=== PATIENT | female | born 1970 | race Caucasian/White ===

== ENCOUNTER 2020-05-08 09:24 | Outpatient (REF) | payer OTHER, SELFPAY ==
[2020-05-08 10:58] LABS: MANUAL DIFF FLAG NO
[2020-05-08 11:09] LABS: Basophils Percent Auto 0.6 % (0-2); Eosinophils Absolute Auto 0.1 X10*3/uL (0.0-0.4); Eosinophils Percent Auto 1.6 % (0-4); Hematocrit 40.3 % (37-47); Hemoglobin 12.6 g/dl (12.0-16.0); Imm Gran Abs Auto 0.02 X10*3/uL (0.00-0.03); Imm Gran Pct Auto 0.4 % (0.0-0.4); Lymphocytes Percent Auto 19.3 % (20-40); Mean Corpuscular HGB Conc 31.3 g/dl (31.0-35.0); Mean Corpuscular Hemoglobin 28.4 pg (27.0-33.0); Mean Platelet Volume 10.2 fL (9.4-12.3); Monocytes Absolute Auto 0.3 X10*3/uL (0.1-1.2); Monocytes Percent Auto 5.5 % (2-11); Neutrophils Absolute Auto 3.7 X10*3/uL (2.0-8.3); Neutrophils Percent Auto 72.6 % (45-73); Platelet Count 224 X10*3/uL (160-400); Red Blood Count 4.43 X10*6/uL (4.20-5.50); Red Cell Distribution Width 11.6 % (11.0-16.0); White Blood Count 5.1 X10*3/uL (4.8-10.8)
[2020-05-08 11:41] LABS: Alanine Aminotransferase 20 U/L (0-31); Albumin Level 4.4 g/dL (3.5-5.0); Alkaline Phosphatase 34 U/L (39-117); Anion Gap 11 (12-20); Aspartate Amino Transferase 22 U/L (5-31); Bilirubin Total 0.4 mg/dL (0.0-1.0); Blood Urea Nitrogen 12 mg/dL (9-16); Calcium 8.7 mg/dL (8.4-10.2); Carbon Dioxide 29 mmol/L (22-29); Chloride 104 mmol/L (96-108); Cholesterol 204 mg/dL; Estimated Glomerular Filt Rate > 60; Glucose Random 85 mg/dL (60-115); HDL Cholesterol 73 mg/dL; LDL Cholesterol Calculated 114 mg/dl; Potassium 4.5 mmol/L (3.3-5.1); Sodium 139 mmol/L (135-145); Total Protein 7.2 g/dL (6.5-8.0); Triglycerides 85 mg/dL
[2020-05-08 11:44] LABS: Thyroid Stimulating Hormone 2.21 uIU/mL (0.32-4.0)
[2020-05-14 04:56] LABS: FT4 by Equilib. Dialysis 1.5 ng/dL (0.9-2.2)
== END 2020-05-08 09:25 | disposition home or self-care (01) ==
LOC: HO.LAB 09:24
PROVIDERS: PCP Internal Medicine; Visit Provider Physician Assistant
DX: Z00.00 Encounter for general adult medical examination without abnormal findings (principal); Z13.6 Encounter for screening for cardiovascular disorders
CPT/HCPCS: 36415; 80053; 80061; 84439; 84443; 85025

== ENCOUNTER 2020-09-08 09:36 | Outpatient (REF) | payer OTHER, SELFPAY ==
[2020-09-08 10:15] LABS: MANUAL DIFF FLAG NO
[2020-09-08 10:24] LABS: Basophils Percent Auto 0.5 % (0-2); Eosinophils Absolute Auto 0.1 X10*3/uL (0.0-0.4); Eosinophils Percent Auto 1.7 % (0-4); Hematocrit 38.9 % (37-47); Hemoglobin 12.4 g/dl (12.0-16.0); Imm Gran Abs Auto 0.01 X10*3/uL (0.00-0.03); Imm Gran Pct Auto 0.2 % (0.0-0.4); Lymphocytes Absolute Auto 1.1 X10*3/uL (1.2-4.9); Lymphocytes Percent Auto 26.4 % (20-40); Mean Corpuscular HGB Conc 31.9 g/dl (31.0-35.0); Mean Corpuscular Hemoglobin 28.4 pg (27.0-33.0); Mean Platelet Volume 9.7 fL (9.4-12.3); Monocytes Absolute Auto 0.3 X10*3/uL (0.1-1.2); Monocytes Percent Auto 7.5 % (2-11); Neutrophils Absolute Auto 2.7 X10*3/uL (2.0-8.3); Neutrophils Percent Auto 63.7 % (45-73); Platelet Count 196 X10*3/uL (160-400); Red Blood Count 4.37 X10*6/uL (4.20-5.50); White Blood Count 4.2 X10*3/uL (4.8-10.8)
[2020-09-08 11:17] LABS: Free T4 (Free Thyroxine) 1.02 ng/dL (0.71-1.85); Thyroid Stimulating Hormone 1.37 uIU/mL (0.32-4.0)
[2020-09-08 11:26] LABS: Alanine Aminotransferase 12 U/L (0-31); Albumin Level 4.2 g/dL (3.5-5.0); Alkaline Phosphatase 36 U/L (39-117); Anion Gap 14 (12-20); Aspartate Amino Transferase 18 U/L (5-31); Bilirubin Total 0.6 mg/dL (0.0-1.0); Blood Urea Nitrogen 11 mg/dL (9-16); Calcium 9.6 mg/dL (8.4-10.2); Carbon Dioxide 27 mmol/L (22-29); Chloride 106 mmol/L (96-108); Estimated Glomerular Filt Rate > 60; Glucose Random 54 mg/dL (60-115); Potassium 4.6 mmol/L (3.3-5.1); Sodium 142 mmol/L (135-145); Total Protein 7.1 g/dL (6.5-8.0)
== END 2020-09-08 09:37 | disposition home or self-care (01) ==
LOC: HO.LAB 09:36
PROVIDERS: PCP Internal Medicine; Visit Provider Physician Assistant
DX: E03.9 Hypothyroidism, unspecified (principal)
CPT/HCPCS: 36415; 80053; 84439; 84443; 85025

== ENCOUNTER 2021-06-25 11:00 | Outpatient (REF) | payer OTHER, SELFPAY ==
--- NOTE | ~2021-06-25 | FL_ITS ---
EXAMINATION: FL BARIUM SWALLOW CLINICAL INFORMATION: Dysphagia. COMPARISON: None TECHNIQUE: Barium swallow examination is performed using fluoroscopic evaluation in addition to multiple fluoroscopic spot views. The patient is imaged both upright and prone and using both thick and thin sulfate along with effervescent granules. Fluoroscopy time: 0.8 minutes DAP: 1.003 Gycm2 Images: 33 FINDINGS: Following oral administration of thick barium and barium coated turkey there is normal propagation bolus from the oral cavity through the pharynx, esophagus into stomach without any evidence of obstruction, narrowing or stricture. The prevertebral soft tissues are normal. FL/FL barium swallow IMPRESSION: Unremarkable barium swallow exam.
== END 2021-06-25 11:01 | disposition home or self-care (01) ==
LOC: HO.XRAY 11:00
PROVIDERS: PCP Internal Medicine; Visit Provider Otolaryngology
DX: Z13.89 Encounter for screening for other disorder (principal)
CPT/HCPCS: 74220

== ENCOUNTER 2021-07-07 11:15 | Outpatient (REF) | payer OTHER, SELFPAY ==
[2021-07-07 14:00] LABS: Appearance Urine CLEAR; Color Urine YELLOW; Glucose Urine UA NEG (NEG); Leukocyte Esterase Urine TRACE (NEG); Nitrite Urine NEG (NEG); PH 6.5 (5.0-8.0); Specific Gravity - Urine <= 1.005 (1.005-1.025); Urine Blood NEG (NEG); Urine Ketones NEG (NEG); Urine Protein NEG (NEG-TRACE)
[2021-07-07 14:51] LABS: RBC Urine 0 /HPF (0); Squamous Epithelial Cell Urine TRACE /LPF; WBC Urine 0-2 /HPF (0-4)
== END 2021-07-07 11:16 | disposition home or self-care (01) ==
LOC: HO.MANLDS 11:15
PROVIDERS: Visit Provider Physician Assistant
DX: R30.0 Dysuria (principal)
CPT/HCPCS: 81001; 81003

== ENCOUNTER 2021-12-19 09:12 | Outpatient (REF) | payer OTHER, SELFPAY ==
[2021-12-19 09:26] LABS: MANUAL DIFF FLAG NO
[2021-12-19 10:03] LABS: Basophils Percent Auto 0.6 % (0-2); Eosinophils Percent Auto 1.1 % (0-4); Hematocrit 39.4 % (37.0-47.0); Hemoglobin 12.2 g/dl (12.0-16.0); Imm Gran Abs Auto 0.01 X10*3/uL (0.00-0.03); Imm Gran Pct Auto 0.3 % (0.0-0.4); Lymphocytes Absolute Auto 1.1 X10*3/uL (1.2-4.9); Lymphocytes Percent Auto 28.9 % (20-40); Mean Corpuscular Hemoglobin 27.4 pg (27.0-33.0); Mean Corpuscular Volume 88.5 fL (80.0-98.0); Mean Platelet Volume 9.4 fL (9.4-12.3); Monocytes Absolute Auto 0.3 X10*3/uL (0.1-1.2); Neutrophils Absolute Auto 2.2 x10*3/uL (2.0-8.3); Neutrophils Percent Auto 61.1 % (45-73); Platelet Count 178 X10*3/uL (160-400); Red Blood Count 4.45 X10*6/uL (4.20-5.50); Red Cell Distribution Width 11.9 % (11.0-16.0); White Blood Count 3.6 X10*3/uL (4.8-10.8)
[2021-12-19 10:50] LABS: Alanine Aminotransferase 19 U/L (0-31); Albumin Level 4.3 g/dL (3.5-5.0); Alkaline Phosphatase 34 U/L (39-117); Anion Gap 14 (12-20); Aspartate Amino Transferase 19 U/L (5-31); Bilirubin Total 0.7 mg/dL (0.0-1.0); Blood Urea Nitrogen 17 mg/dL (9-16); Calcium 8.9 mg/dL (8.4-10.2); Carbon Dioxide 26 mmol/L (22-29); Chloride 104 mmol/L (96-108); Cholesterol 204 mg/dL; Estimated Glomerular Filt Rate > 60; Glucose Random 85 mg/dL (60-115); HDL Cholesterol 71 mg/dL; LDL Cholesterol Calculated 122 mg/dl; Potassium 4.4 mmol/L (3.3-5.1); Sodium 140 mmol/L (135-145); Total Protein 7.2 g/dL (6.5-8.0); Triglycerides 59 mg/dL
[2021-12-19 10:57] LABS: Free T4 (Free Thyroxine) 1.04 ng/dL (0.71-1.85); Thyroid Stimulating Hormone 1.05 uIU/mL (0.32-4.0)
== END 2021-12-19 09:13 | disposition home or self-care (01) ==
LOC: HO.LAB 09:12
PROVIDERS: PCP Internal Medicine; Visit Provider Physician Assistant
DX: Z00.00 Encounter for general adult medical examination without abnormal findings (principal)
CPT/HCPCS: 36415; 80053; 80061; 84439; 84443; 85025

== ENCOUNTER 2022-04-02 10:29 | Day surgery (SDC) | payer OTHER, SELFPAY ==
--- NOTE | 2022-04-02 11:19 | P.CONAN_ITS ---
HPI - Anesthesia Eval Consult details Narrative: egd, colonoscopy [facility] Past Medical History Medical History (Updated 04/01/22 @ 12:58 by Montserrat Smith, RN) Globus syndrome Hypothyroidism Family History Family history of problems with anesthesia: No Surgical History Surgical History (Updated 04/01/22 @ 12:58 by Montserrat Smith, RN) H/O eye surgery History of Problems with Anesthesia: No Social History Social History Advance Directives: No Advance Directives Information Provided: Yes Meds Allergies Allergy/AdvReac Type Severity Reaction Status Date / Time bacitracin Allergy Unknown Verified 04/01/22 12:57 Active Medications: Current Medications Sodium Biphosphate/Sodium Phosphate (Sodium Phosphate,Payette-Dibasic 133 Ml Enema) 133 ml ND ONCE PRN PRN Reason: Poor Colonoscopy Prep Results Home Medications Medication Instructions Recorded Confirmed Last Taken Type levothyroxine 50 mcg tablet tab PO 04/01/22 Unknown History omeprazole 20 mg capsule,delayed 1 cap PO DAILY 04/01/22 04/01/22 Unknown History release Exam Exam Date and Time: April 02, 2022 1119 Airway Mallampati Class: II TM Dist: >3cm Neck ROM: Full Heart: rrr Lungs: cta Assessment and Plan Final Anesthetic Review Family History of Problems with Anesthesia: No History of Problems with Anesthesia: No NPO: Yes ASA Class: II Final Preanesthetic Review: No Changes in Pt Med Stat, Meds/Allgs Chart Reviewed, Consent Obtained/Reviewed and Anes Risks/Benef Reviewed Patient Risk: Low Procedure Risk: Low Anesthetic Plan Anesthetic Plan: MAC: and Agree w/ Assess. and Plan Disposition: Standard PACU
[2022-04-02 11:33] VITALS: BP 127/55; PULSE 73; RESP 18; TEMP 486.9; TEMP 908.5; O2SAT 99; BMI 21.7
[2022-04-02] MEDS: Lactated Ringers 1,000 ML 50 ML IVCONT (11:51)
--- NOTE | 2022-04-02 11:52 | PC.NURSE ---
pt reports being unable to void, despite hydration of ivf LR @ 50ml/h. Dr. Padgett aware. pt has current menses, no sex in 4 years . risks discussed by anesthesia, ok to proceed.
--- NOTE | 2022-04-02 13:09 | P.BOP_ITS ---
Brief Operative Note Date of Service: 04/02/22 Pre-op diagnosis: Globus, Screening Post-op diagnosis: other (Hiatal hernia, Gastric polyps, Internal hemorrhoids) Procedure: EGD with biopsies, Colonoscopy to the cecum and TI Surgeon: Ori Shoemaker Anesthesia: MAC Was an [employer] used for this Procedure?: No Estimated blood loss (mL): 2.0 Pathology: other (A. Gastric polyps B. Esophagus 20-25cm) Condition: stable Disposition: PACU
[2022-04-02 13:10] VITALS: BP 100/58; PULSE 65; RESP 16; TEMP 36.1; O2SAT 100
[2022-04-02 13:25] VITALS: BP 112/70; PULSE 54; RESP 18; TEMP 36.9; O2SAT 100
--- NOTE | 2022-04-05 08:54 | OP_ITS ---
SURGEON: Ori Shoemaker MD INDICATIONS: The patient presents for evaluation of globus and colorectal cancer screening. Full consent has been obtained from her for this, including risks of bleeding and perforation. PREOPERATIVE DIAGNOSIS: POSTOPERATIVE DIAGNOSIS: PROCEDURE PERFORMED: Esophagogastroduodenoscopy with biopsies and colonoscopy to the cecum and terminal ileum. ESTIMATED BLOOD LOSS: COMPLICATIONS: ANESTHESIA: Monitored anesthesia care. ASSISTANTS: SPECIMENS: PREOPERATIVE DIAGNOSES: Globus and colorectal cancer screening. POSTOPERATIVE DIAGNOSES: Globus and colorectal cancer screening, small hiatal hernia, gastric polyps, rule out eosinophilic esophagitis, internal hemorrhoids. PROCEDURE IN DETAIL: The patient was placed in the left lateral decubitus position. The Olympus video gastroscope was passed in the posterior oropharynx and upper esophagus under direct vision. The scope was passed slowly to the distal esophagus. The gastroesophageal junction appeared normal without any sign of mass or ulceration. There was no evidence of Galvan's mucosa. The scope entered the stomach. There is a small hiatal hernia. The scope was advanced to the pylorus, and the duodenum was cannulated to the descending portion. The duodenum including the bulb appeared normal with mass or ulceration. The scope was withdrawn back in the stomach. The gastric antrum and body appeared normal with good peristalsis. The scope was retroflexed visualizing the proximal stomach carefully, which appeared normal, without any sign of mass or ulceration other than several hyperplastic-appearing gastric polyps. Biopsies were obtained from the gastric polyps. The scope was straightened and withdrawn back into the esophagus. The esophageal mucosa appeared normal. There was no sign of any proximal esophageal rings nor webs. Biopsies were obtained between 20 and 25 cm. The scope was withdrawn from the patient. She was turned around for the colonoscopy. The digital rectal exam revealed no abnormalities. The Olympus video pediatric colonoscope was entered into the rectum and advanced easily to the cecum. Once in the cecum, I did identify a normal-appearing cecal pouch with appendiceal orifice and a normal-appearing ileocecal valve. The terminal ileum was cannulated and appeared normal. The scope was withdrawn back in the colon. The entire cecum and ileocecal valve appeared normal. The scope was slowly withdrawn assessing all mucosal surfaces carefully. Preparation in the colon with somewhat limited due to some residual stool, which was suctioned and irrigated away as best as possible. I did not visualize any sign of polyps, colitis nor angiodysplasia. In the rectum, the scope was retroflexed, visualizing some small internal hemorrhoids but no other pathology. The rectal mucosa appeared normal. The scope was straightened and withdrawn from the patient. She tolerated the procedures well and was returned to the recovery area in stable condition. IMPRESSION: 1. Small hiatal hernia. 2. Gastric polyps. 3. Rule out eosinophilic esophagitis. 4. Internal hemorrhoids. 5. Limited bowel prep. PLAN: The results of the biopsies will be checked. I recommend a followup colonoscopy at age 57 given the somewhat limited exam today due to the prep. In regard to her sense of globus, I did review with her that there is no sign of any pathology and at this point I would simply observe this. I do not think any further workup of that is required. She will otherwise see me on a p.r.n. basis. MD TAYLOR Mcmahon/PABLO / [id number] MTDD
== END 2022-04-02 13:51 | disposition home or self-care (01) ==
PROVIDERS: PCP Internal Medicine; Visit Provider Internal Medicine
PROC: (CPT 45378; principal; 2022-04-02 11:40)
DX: Z12.11 Encounter for screening for malignant neoplasm of colon (principal); K64.8 Other hemorrhoids; F45.8 Other somatoform disorders; K31.7 Polyp of stomach and duodenum; K44.9 Diaphragmatic hernia without obstruction or gangrene; K21.9 Gastro-esophageal reflux disease without esophagitis; E03.9 Hypothyroidism, unspecified; Z79.899 Other long term (current) drug therapy
CPT/HCPCS: 45378; 43239; 88305; 88342

== ENCOUNTER 2023-01-05 09:33 | Outpatient (REF) | payer OTHER, SELFPAY ==
[2023-01-05 09:52] LABS: MANUAL DIFF FLAG NO
[2023-01-05 10:30] LABS: Basophils Percent Auto 0.4 % (0-2); Eosinophils Percent Auto 0.6 % (0-4); Hematocrit 39.7 % (37.0-47.0); Hemoglobin 12.7 g/dl (12.0-16.0); Imm Gran Abs Auto 0.03 X10*3/uL (0.00-0.03); Imm Gran Pct Auto 0.6 % (0.0-0.4); Lymphocytes Absolute Auto 1.1 X10*3/uL (1.2-4.9); Lymphocytes Percent Auto 20.3 % (20-40); Mean Corpuscular Hemoglobin 28.6 pg (27.0-33.0); Mean Corpuscular Volume 89.4 fL (80.0-98.0); Mean Platelet Volume 9.4 fL (9.4-12.3); Monocytes Absolute Auto 0.3 X10*3/uL (0.1-1.2); Monocytes Percent Auto 5.9 % (2-11); Neutrophils Absolute Auto 3.9 x10*3/uL (2.0-8.3); Neutrophils Percent Auto 72.2 % (45-73); Platelet Count 235 X10*3/uL (160-400); Red Blood Count 4.44 X10*6/uL (4.20-5.50); Red Cell Distribution Width 12.4 % (11.0-16.0); White Blood Count 5.4 X10*3/uL (4.8-10.8)
[2023-01-05 10:43] LABS: Estimated Average Glucose 100 mg/dL; Hemoglobin A1c % 5.1 % (<6.0)
[2023-01-05 11:41] LABS: Alanine Aminotransferase 16 U/L (0-31); Albumin Level 4.2 g/dL (3.5-5.0); Alkaline Phosphatase 33 U/L (39-117); Anion Gap 8 (12-20); Aspartate Amino Transferase 15 U/L (5-31); Bilirubin Total 0.7 mg/dL (0.0-1.0); Blood Urea Nitrogen 16 mg/dL (9-16); Calcium 9.2 mg/dL (8.4-10.2); Carbon Dioxide 30 mmol/L (22-29); Chloride 106 mmol/L (96-108); Cholesterol 238 mg/dL (<200); Estimated Glomerular Filt Rate > 60; Glucose Random 86 mg/dL (60-115); HDL Cholesterol 77 mg/dL (>40); LDL Cholesterol Calculated 143 mg/dL (<100); Potassium 3.9 mmol/L (3.3-5.1); Sodium 140 mmol/L (135-145); Total Protein 7.2 g/dL (6.5-8.0); Triglycerides 91 mg/dL (<150)
[2023-01-05 12:03] LABS: TSH reflex Free T4 1.94 uIU/mL (0.32-4.0); Vitamin D 25-OH Total 38.8 ng/mL (>30)
[2023-01-05 12:06] LABS: Vitamin B12 523 pg/mL (200-900)
== END 2023-01-05 09:34 | disposition home or self-care (01) ==
LOC: HO.LAB 09:33
PROVIDERS: PCP Internal Medicine; Visit Provider Physician Assistant
DX: Z00.00 Encounter for general adult medical examination without abnormal findings (principal)
CPT/HCPCS: 36415; 80053; 80061; 82306; 82607; 82746; 83036; 84443; 85025

== ENCOUNTER 2023-01-07 10:14 | Outpatient (REF) | payer OTHER, SELFPAY ==
[2023-01-08 12:04] LABS: Follicle Stimulating Hormone 13.4 mIU/mL; Lutenizing Hormone 9.7 mIU/mL; Prolactin 8.2 ng/mL
[2023-01-12 19:23] LABS: Progesterone <0.1 ng/mL
[2023-01-12 22:19] LABS: Estradiol Ultra Sensitive 197 pg/mL
[2023-01-16 00:44] LABS: Estrogen 217 pg/mL
== END 2023-01-07 10:15 | disposition home or self-care (01) ==
LOC: HO.MANLDS 10:14
PROVIDERS: Visit Provider Physician Assistant
DX: N95.8 Other specified menopausal and perimenopausal disorders (principal)
CPT/HCPCS: 36415; 82670; 82672; 83001; 83002; 84144; 84146

== ENCOUNTER 2023-03-16 19:38 | Outpatient (REF) | payer OTHER, SELFPAY ==
--- NOTE | ~2023-03-16 | MR_ITS ---
EXAMINATION: MR SHOULDER WITHOUT CONTRAST, LEFT CLINICAL INFORMATION: Left shoulder pain and numbness. Limited range of motion. COMPARISON: None available. TECHNIQUE: MRI of the shoulder without contrast was performed on a high-field scanner. FINDINGS: ROTATOR CUFF: Intact. No rotator cuff tendon tear. No muscle atrophy or fatty infiltration. BICEPS: Intact. CORACOACROMIAL ARCH: The undersurface of the acromion is curved with no subacromial spur. The acromioclavicular joint is normal. Trace fluid and edema within the subacromial subdeltoid bursa, consistent with mild bursitis. LABRUM/CAPSULE: Somewhat linear increased T2 signal within the undersurface of the superior labrum, consistent with a nondisplaced undersurface tear. Additional linear fluid signal along the undersurface of the posterior labrum, consistent with a nondisplaced undersurface tear. Intact joint capsule. GLENOHUMERAL JOINT/MARROW: Focal full-thickness articular cartilage defect at the medial aspect of the humeral head measuring up to 1.1 cm in craniocaudal dimension (coronal image 8/18). Mild marrow edema at the posterolateral humeral head which may represent early degenerative cystic change. Small glenohumeral joint effusion. MR/MR shoulder LT wo con IMPRESSION: 1. Nondisplaced undersurface tear of the superior labrum as well as a nondisplaced undersurface tear of the posterior labrum. 2. Focal full-thickness articular cartilage defect at the medial aspect of the humeral head measuring up to 1.1 cm in craniocaudal dimension. Mild marrow edema at the posterolateral humeral head which may represent early degenerative cystic change. Small glenohumeral joint effusion. 3. Mild subacromial subdeltoid bursitis. 4. No rotator cuff tendon tear.
== END 2023-03-16 19:39 | disposition home or self-care (01) ==
LOC: HO.MRI 19:38
PROVIDERS: PCP Internal Medicine; Visit Provider Physician Assistant
DX: M75.112 Incomplete rotator cuff tear or rupture of left shoulder, not specified as traumatic (principal)
CPT/HCPCS: 73221

== ENCOUNTER 2023-11-29 15:35 | Outpatient (REF) | payer OTHER, SELFPAY ==
[2023-11-29 16:05] LABS: Appearance Urine Clear; Color Urine Yellow; Glucose Urine UA Negative (Negative); Leukocyte Esterase Urine Small (1+) (Negative); Nitrite Urine Negative (Negative); Specific Gravity - Urine <= 1.005 (1.005-1.025); UMIC TRIGGER UACC YES; Urine Blood Negative (Negative); Urine Ketones Negative (Negative); Urine Protein Negative (Neg-Trace)
[2023-11-29 16:08] LABS: Bacteria Urine None Seen (None Seen); Hyaline Casts Urine 0-2 /LPF (0-2); RBC Urine 0-2 /HPF (0-2); Squamous Epithelial Cell Urine 0-2 /HPF (0-2); UACC Culture Trigger YES
== END 2023-11-29 15:36 | disposition home or self-care (01) ==
LOC: HO.LAB 15:35
PROVIDERS: PCP Internal Medicine; Visit Provider Physician Assistant
DX: N39.0 Urinary tract infection, site not specified (principal)
CPT/HCPCS: 81001; 81003; 87086

== ENCOUNTER 2024-01-18 09:30 | Outpatient (REF) | payer OTHER, SELFPAY ==
[2024-01-18 09:55] LABS: MANUAL DIFF FLAG NO
[2024-01-18 10:08] LABS: Basophils Percent Auto 0.8 % (0-2); Eosinophils Absolute Auto 0.1 X10*3/uL (0.0-0.4); Eosinophils Percent Auto 1.4 % (0-4); Hemoglobin 12.7 g/dl (12.0-16.0); Imm Gran Abs Auto 0.02 X10*3/uL (0.00-0.03); Imm Gran Pct Auto 0.6 % (0.0-0.4); Lymphocytes Percent Auto 26.8 % (20-40); Mean Corpuscular HGB Conc 32.6 g/dl (31.0-35.0); Mean Corpuscular Hemoglobin 29.2 pg (27.0-33.0); Mean Corpuscular Volume 89.7 fL (80.0-98.0); Mean Platelet Volume 9.1 fL (9.4-12.3); Monocytes Absolute Auto 0.3 X10*3/uL (0.1-1.2); Monocytes Percent Auto 7.9 % (2-11); Neutrophils Absolute Auto 2.2 x10*3/uL (2.0-8.3); Neutrophils Percent Auto 62.5 % (45-73); Platelet Count 187 X10*3/uL (160-400); Red Blood Count 4.35 X10*6/uL (4.20-5.50); Red Cell Distribution Width 11.5 % (11.0-16.0); White Blood Count 3.6 X10*3/uL (4.8-10.8)
[2024-01-18 10:55] LABS: Alanine Aminotransferase 67 U/L (0-31); Albumin Level 4.1 g/dL (3.5-5.0); Alkaline Phosphatase 33 U/L (39-117); Anion Gap 10 (12-20); Aspartate Amino Transferase 40 U/L (5-31); Bilirubin Total 0.7 mg/dL (0.0-1.0); Blood Urea Nitrogen 15 mg/dL (9-16); Calcium 9.5 mg/dL (8.4-10.2); Carbon Dioxide 28 mmol/L (22-29); Chloride 107 mmol/L (96-108); Cholesterol 227 mg/dL (<200); Estimated Glomerular Filt Rate > 60; Glucose Random 84 mg/dL (60-115); HDL Cholesterol 78 mg/dL (>40); LDL Cholesterol Calculated 136 mg/dL (<100); Potassium 4.1 mmol/L (3.3-5.1); Sodium 141 mmol/L (135-145); Total Protein 7.2 g/dL (6.5-8.0); Triglycerides 67 mg/dL (<150)
[2024-01-18 11:15] LABS: Free T4 (Free Thyroxine) 1.32 ng/dL (0.71-1.85); Thyroid Stimulating Hormone 1.74 uIU/mL (0.32-4.0); Vitamin D 25-OH Total 46.1 ng/mL (>30)
--- OUTSIDE RECORDS SUMMARY | 2024-01-18 23:50 | XMS_ITS | Data Portability ---
Author Organization [place] [facility] Address [address] [place] [id number] Care Team Providers Care Applications Support Specialist Name Role Phone DUONG LARA Primary Care Provider [phone] Assessment Encounter Date Assessment Date Assessment LastModified by Organization Details LastModified Time 01/23/2020 01/23/2020 Overview/History : 49yoF pmhx hypothyroidism is seen for a sore throat for 2-3 days. Recent tooth extraction5 days ago with some mild discomfort. No fever, no difficulty swallowing. Patient also reports her son recently saw her ex who had a covid exposure. Exam: VSS heart and lung sounds clear pharynx without redness, swelling or exudates no sig gum swelling or redness no sig cervical lymphadenopathy DDx considered, but not limited to: viral pharyngitis strep pharyngitis PTS-doubt as no soft tissue swelling and uvula midline dental infection-doubt as no sig redness or swelling Work up/Results: strep culture pending covid test pending Plan/Discussion: Patient is hemodynamically stable non toxic appearing seen today for sore throat. Rapid strep is negative. We will follow up on the culturre. No signs of DIRECTOR OF MANUFACTURING or tooth abscess at this time. Patient was also tested for COVID. She will continue to isolate. Patient instructed to do warm water salt gargles. Instructed to again seek medical care if she develops a fever, worsened pain or has difficulty swallowing. she verbalized understanding and was agreeable with overall plan. In order to obtain further information and compare any laboratory results/values, I have accessed . This information was pertinent in my medical decision making today. Time On Scene with Patient: 00:23:28 [email or web address] Not available 01/23/2020 16:34:36 Plan of Treatment Reminders Order Date Submit Date Provider Last Modified By Organization Details Last Modified Time Details Appointments None recorded. Lab streptococc us group A, culture, throat 2019 020 PAULINE [facility], [address], [address], 0 12:18:22 rapid strep group A, throat 2019 020 [email or web address] [facility], [address], [place], [address], 0 15:55:10 Referral None recorded. Procedures None recorded. Surgeries None recorded. Imaging None recorded. Medication Orders None recorded. Patient TargetsNo targets recorded. Patient InstructionsNo instructions recorded. Reason for Referral None Reported. Results Created Date Observation Date Name Description Value Unit Range Abnormal Flag Note LastModifiedBy Organization Detail LastModifiedTime 01/23/20 20 01/25/2020 strep tococ cus group A, cultu re, throa t specimen description THROAT SWAB Not Available [facility] [address], [address], 01/26/2020 12:18:22 01/23/20 20 01/25/2020 strep tococ cus group A, cultu re, throa t special requests NONE Not Available [facility] [address] [place], [address], 01/26/2020 12:18:22 01/23/20 20 01/26/2020 strep tococ cus group A, cultu re, throa t culture NO GROUP A BETA HEMOLY TIC STREPT OCOCCI ISOLAT ED Not Available [facility] [address], [address], 01/26/2020 12:18:22 01/23/20 20 01/26/2020 strep tococ cus group A, cultu re, throa t report status FINAL 2019 Not Available [facility] [address] [place], [address], 01/26/2020 12:18:22 01/23/20 20 01/28/2020 SARS CoV 2 RNA, QL probe , unspe cifie d speci men covid-19 PCR specimen source NASAL Not Available [facility] [address] [place], [address], 01/29/2020 00:23:09 01/23/20 20 01/29/2020 SARS CoV 2 RNA, QL probe , unspe cifie d speci men covid-19 PCR result (neg) normal NEGAT CONSTANCE 2019- novel Coron aviru s (2018 -nCoV ) not detec anabel by real- time RT-PC R. Note: If clini thad suspi cion for COVID -19 is high, codi nue to maint ain preca ution s and consi estrada repea t testi ng. Resul t repor anabel to GAY DP. To preve nt error s in diagn osis, test resul ts shoul d be inter prete d in the isabela xt of clini thad findi ngs and other labor atory data. Rare polym orphi sms exist that could lead to false -nega tive or false -posi tive resul ts. If resul ts obtai josé antonio do not match the clini thad findi ngs, addit ional testi ng shoul d be consi dered . This test has been autho rized by the FDA under an Emerg ency Use Autho rizat ion (EUA) for use by autho rized labor atori es. Testi ng perfo rmed by real time PCR utili ng BONIFACIO 6800 SARS- CoV-2 test. Not Available [facility] [address] [place], [address], 01/29/2020 00:23:09 01/23/20 20 01/23/2020 rapid strep group A, throa t Strep negati ve Not Available [facility] [address], [place], [address], 01/23/2020 15:54:29 01/23/20 20 01/23/2020 rapid strep group A, throa t Control Visual ized / Valid Not Available [facility] [address], [place], [address], 01/23/2020 15:54:29 Result Notes None recorded. Procedures Surgical History Date Name Laterality Status Provider Name and Address Organization Details Recorded Time biopsy of breast completed SHABNAM EVERETT [address] [place], [address], [place] [facility] 01/23/2020 14:36:07 Imaging Results None recorded. Procedure Notes None recorded. Medical Equipment None Reported. Allergies Allergen ID Allergen Name Allergen Category Reaction Reaction Severity Criticality Documentation Date Start Date Code Code System Note Provider Name and Address Organization Details Recorded Time 003002 Bactrim medicatio n Not available Not available Not available 01/23/2020 14362 9 RxNorm SHABNAM EVERETT [address] [place], [address], [place] [facility] 0 15:42:02 Medications Name Sig Start Date Stop Date Status Note LastModified by Organization Details LastModified Time levothyroxi ne 50 mcg tablet 1 TAB DAILY BUT TAKE 2 TABS ON Tuesday AND SATURDAYS . 90 DAY SUPPLY active Not Available Not Available No t Available diclofenac sodium 75 mg tablet,tristan yed release TAKE 1 TABLET BY MOUTH TWICE A DAY 01/22 completed Not Available Not Available Not Available Afluria Qd (36 mos up)(PF)60 mcg (15 mcg x4)/0.5 mL IM syringe [facility] active Not Available Not Available No t Available Vitals Date Recorded Heart rate Body temperature Oxygen saturation Oxygen saturation in Arterial blood by Pulse oximetry Respiratory rate Systolic blood pressure Diastolic blood pressure Provider Name and Address Organization Details Last Updated DateTime 0 68 /min 96.8 [degF] 99 % 99 % 14 /min 118 mm[Hg] 76 mm[Hg] Not Available [facility] 0 14:04:57 Social History Question Answer Notes LastModified by Organizat ion Details LastModified Time Tobacco Smoking Status Never Smoker SHABNAM EVERETT [address] [place], [address], [place] [facility] 01/23/2020 14:35:13 Do You Have An Advance Directive? No [email or web address] Information not available 01/23/2020 What Is Your Code Status? Full Code [email or web address] Information not available 01/23/2020 Within The Past 12 Months, Has It Happened That The Food You Bought Just Didn't Last And You Didn't Have Money To Get More. No [email or web address] Information not available 01/23/2020 Within The Past 12 Months, Have You Worried That Your Food Would Run Out Before You Got Money To Buy More. No [email or web address] Information not available 01/23/2020 Fall Risk: Do You Feel Unsteady When Standing Or Walking? No Information not available 01/23/2020 We Know That How And When People Interact With Friends And Family Can Be Very Different From Person To Person. How Often Do You Have The Opportunity To See Or Talk To People That You Care About And Feel Close To? (Ex: Talking To Friends On The Phone Or Visiting Friends Or Family Or Going To Orthodox Or Club Meetings) 5 Or More Times Per Week [email or web address] Information not available 01/23/2020 Excessive Alcohol Or Drug Use No [email or web address] Information not available 01/23/2020 We Know From Many Of Our Patients That Covering All Of Their Costs Can Be Difficult At Times. This Can Cause Stress And Impact Health. In The Past Year, Have You Been Unable To Get Any Of The Following When It Was Really Needed? No [email or web address] Information not available 01/23/2020 What Is Your Housing Situation Today? I Have Housing [email or web address] Information not available 01/23/2020 Would You Like Help Connecting To Resources? None [email or web address] Information not available 01/23/2020 Sex: Unknown Functional Status None recorded. Mental Status None recorded. Family History Relationship Description Onset Age of this Age Resolved Age Notes LastModified by Organization Details LastModified Time Father Coronary arterioscler osis [email or web address] Not available 2019 14:35:07 Medical History Condition Response Diabetes N Coronary Artery Disease N High Cholesterol N Cancer Y Pulmonary Embolism N Stroke N Hypertension N Asthma N COPD N Depression N Kidney Disease N Gynecological HistoryNo gynecological history recorded. Obstetrics History GPAL:G 0 P 0 0 0 0 Past Encounters Encounter ID Performer Location Encounter Start Date Encounter Closed Date Diagnosis/Indication Diagnosis SNOMED-CT Code Diagnosis ICD10 Code [id number] SHABNAM EVERETT [facility] [address] [place] [address] 01/23/2020 13:22:32 01/23/2020 16:41:20 Viral pharyngitis 5579144 J02.8 Health Concerns Section Related Observation LastModified by Organization Detai ls LastModified Time None Recorded Concern Status LastModified by Organization Details LastModified Time None Recorded Advance Directives Directive N: Payers Encounter Date Sequence Insurance Name Policy Number Policy Noel Covered Member ID Noel Member ID Guarantor Name 01/23/2020 1 [facility] [id number] Elena Deras [id number] Elena Deras OBGyn Episode No OBEpisode recorded.
--- OUTSIDE RECORDS SUMMARY | 2024-01-18 23:50 | XMS_ITS | Data Portability ---
Author Organization [facility] Address [address] [place] [address] Assessment Encounter Date Assessment Date Assessment LastModified by Organization Details LastModified Time 02/04/2023 02/04/2023 Patient agreed and verbally consents to this audio and video Telehealth appt via a secure platform [email or web address] Not available 02/04/2023 14:27:06 04/26/2023 04/26/2023 Patient agreed and verbally consents to this audio and video Telehealth appt via a secure platform [email or web address] Not available 04/26/2023 13:55:50 Plan of Treatment Reminders Order Date Submit Date Provider Last Modified By Organization Details Last Modified Time Details Appointments ANNUAL EXAM 2023 11:45A M SHABNAM CENTENO Not available Not available Not available Lab estradiol , serum 2022 023 [facility], [address] [place] [address], [id number], 01/07/2023 10:02:09 progester one, serum 2022 023 [facility], [address] [place] [address], [address], 01/13/2023 12:14:46 lh + FSH, serum 2022 023 [facility], [address] [place] [address], [address], 01/10/2023 11:27:10 testoster one, total, serum 2022 023 [facility], [address] [place] [address], [id number], 01/07/2023 10:02:09 prolactin , serum 2022 023 [facility], [address] [place] [address], [id number], 01/07/2023 10:02:09 estrogen, total, serum 2022 023 [facility], [address] [place] [address], [id number], 01/07/2023 10:02:09 Referral None recorded. Procedures None recorded. Surgeries None recorded. Imaging XR, knee, 3 view 2022 023 [facility], [address] [place], [address], 04/27/2022 13:42:45 XR, foot, 3 or more view 2022 023 [facility], [address] [place], [address], 04/27/2022 13:33:08 MRI, shoulder, w/o contrast 2023 024 [email or web address] 10 [facility], [address] [place] [address], [place], [address], 03/16/2023 10:14:53 Medication Orders diclofena c sodium 75 mg tablet,de layed release 2022 023 [email or web address] [id number], [address] [place], [address], 01/07/2023 10:01:28 celecoxib 200 mg capsule 2022 023 [email or web address] [id number], [address] [place], [address], 02/04/2023 14:38:02 amoxicill in 875 mg-potass ium clavulana te 125 mg tablet 2023 024 [id number], [address] [place], [address], 04/26/2023 13:56:12 Patient TargetsNo targets recorded. Patient InstructionsNo instructions recorded. Reason for Referral None Reported. Results Created Date Observation Date Name Description Value Unit Range Abnormal Flag Note LastModifiedBy Organization Detail LastModifiedTime 04/28/19 23 04/27/2022 XR, foot, 3 or more view No observ ation record ed. [facility] [address] [place], [address], 04/27/2022 13:34:47 04/28/19 23 04/27/2022 XR, knee, 3 view No observ ation record ed. [facility] [address] [place], [address], 04/28/2022 16:26:32 07/20/19 23 07/19/2022 MAMMO , scree joceline, digit al, bilat eral No observ ation record ed. [facility] [address] [place], [address], 07/19/2022 12:16:56 03/18/19 24 03/16/2023 MRI, shoul estrada, w/o contr ast No observ ation record ed. [facility] (Medical Records) [address] [place], [address], 03/18/2023 11:53:12 Result Notes None recorded. Problems Name Problem SNOMED Code Status Onset Date Resolution Date Notes Provider Name and Address Organization Details Recorded Time Hypothyroi dism 00123870 Active 2017 Not Available [facility] 3 15:44:41 History of malignant neoplasm of skin Active 2017 Not Available [facility] 3 15:44:41 Impacted cerumen 26937089 Active 2021 Not Available [facility] 3 15:44:41 Dysuria 37233227 Active 2021 Not Available [facility] 3 15:44:41 Bilateral carpal tunnel syndrome 8863634322854 9101 Active 2021 Not Available [facility] 3 15:44:41 Gastroesop hageal reflux disease 314706340 Active 2021 Not Available [facility] 3 15:44:41 Pain of left knee joint 2732007251712 07 Active 2022 Not Available [facility] 3 15:44:41 Pain in left foot 9580829080862 07 Active 2022 Not Available [facility] 3 15:44:41 Tear of meniscus of knee 258803989 Active 2022 Not Available [facility] 3 15:44:41 Cough 64302783 Active 2022 Not Available [facility] 3 15:44:41 Perimenopa usal disorder 757982987 Active 2022 SHABNAM CENTENO [address], [place], [address] , [facility] 3 09:59:16 Pain of left shoulder joint 6474939042307 9109 Active 2022 SHABNAM CENTENO [address], [place], [address] , [facility] 3 14:26:09 Rupture of rotator cuff of left shoulder 2352867263852 9102 Active 2023 SHABNAM CENTENO [address], [place], [address] , [facility] 4 11:14:45 Glenoid labrum tear 123165055 Active 2023 SHABNAM CENTENO [address], [place], [address] , [facility] 4 11:59:46 Acute sinusitis 59712631 Active 2023 SHABNAM CENTENO [address], [place], [address] , [facility] 4 13:55:08 Acute urinary tract infection 249916593 Active 2023 SHABNAM CENTENO [address], [place], [address] , [facility] 4 11:01:53 Problem Notes None recorded. Procedures Surgical History Date Name Laterality Status Provider Name and Address Organization Details Recorded Time 3 Colonoscopy completed Emeka Morse DO [address], [place], [address], [facility] 04/11/2022 07:30:03 2 Cerumen Removal completed SHABNAM CENTENO [address],[place], [address], [facility] 03/16/2021 09:11:02 1 Cerumen Removal completed SHABNAM CENTENO [address], [place], [address], [facility] 11/26/2020 11:15:54 1 Cerumen Removal completed SHABNAM CENTENO [address], [place], [address], [facility] 08/26/2020 11:00:07 1 Cerumen Removal completed SHABNAM CENTENO [address], [place], [address], [facility] 06/03/2020 10:05:52 6 Date of Last Pap Smear completed Amy Manuel NP, [place] [address] [facility],[place], [address], [facility] 09/27/2017 15:14:12 Eye Surgery completed Amy Manuel NP, [place] [address] [facility],[place], [address], [facility] 09/27/2017 15:13:01 Cerv cancer screen docd completed Amy Manuel, [employer], [address] [place], [address], [facility] 09/27/2017 15:16:33 Imaging Results Imaging Date Name Status LastModified by Organiz ation Details LastModified Time 04/27/2022 XR, foot, 3 or more view completed [facility] [address] [place], [address], 04/27/2022 13:34:47 04/27/2022 XR, knee, 3 view completed [facility] [address] [place], [address], 04/28/2022 16:26:32 07/19/2022 MAMMO, screening, digital, bilateral completed [facility] [address] [place], [address], 07/19/2022 12:16:56 03/16/2023 MRI, shoulder, w/o contrast completed [facility] (Medical Records) [address] [place], [address], 03/18/2023 11:53:12 Procedure Notes None recorded. Medical Equipment None Reported. Allergies Allergen ID Allergen Name Allergen Category Reaction Reaction Severity Criticality Documentation Date Start Date Code Code System Note Provider Name and Address Organization Details Recorded Time 3828 Bactrim medicatio n Not available Not available Not available 06/12/2019 25480 9 RxNorm SHABNAM CENTENO [address] [place], [address], [facility] 0 15:17:48 4443 bupropion Not available hallucina tions severe Not available 06/03/2020 60017 RxNorm SHABNAM CENTENO [address] [facility] [place], [address], [facility] 1 10:02:20 6794 diclofena c Not available Not available Not available Not available 06/23/2022 3355 RxNorm const ipati on SHABNAM CENTENO 6 [facility] [place], [address], [facility] 3 12:39:27 Medications Name Sig Start Date Stop Date Status Note LastModified by Organization Details LastModified Time celecoxib 200 mg capsule TAKE 1 CAPSULE BY MOUTH TWICE A DAY NEEDED 2023 active Not Available Not Available Not Avai lable amoxicilli n 500 mg capsule TAKE 1 CAPSULE THREE TIMES DAILY UNTIL GONE 05/06 completed Not Available Not Available Not Available bupropion HCl SR 150 mg tablet,12 hr sustained- release TAKE 1 TABLET EVERY DAY BY ORAL ROUTE FOR 30 DAYS. 06/03 completed Not Available Not Available Not Available paroxetine 10 mg tablet TAKE 1 TABLET BY MOUTH EVERY DAY active Not Available Not Available No t Available ibuprofen 800 mg tablet 09/27 completed Not Available Not Available Not Available benzonatat e 200 mg capsule TAKE 1 CAPSULE BY MOUTH THREE TIMES A DAY NEEDED FOR 14 DAYS 01/07 completed Not Available Not Available Not Available metronidaz ole 0.75 % (37.5 mg/5 gram) vaginal gel 09/27 completed Not Available Not Available Not Available prednisone 20 mg tablet 09/27 completed Not Available Not Available Not Available ciprofloxa suha 500 mg tablet 09/27 completed Not Available Not Available Not Available triamcinol one acetonide 0.1 % topical cream 09/27 completed Not Available Not Available Not Available amoxicilli n 875 mg tablet 09/27 completed Not Available Not Available Not Available levothyrox ine 50 mcg tablet TAKE 1 TABLET BY MOUTH EVERY DAY AND TAKE 2 TABLETS ON TUE AND Tuesday active Not Available Not Available Not Avai lable omeprazole 20 mg capsule,de layed release TAKE 1 CAPSULE BY MOUTH EVERY DAY 04/26 completed Not Available Not Available Not Available diclofenac sodium 75 mg tablet,del ayed release TAKE 1 TABLET BY MOUTH TWICE A DAY NEEDED WITH FOOD active Not Available Not Available No t Available fluticason e propionate 50 mcg/actuat ion nasal spray,susp ension SPRAY 1 SPRAY EVERY DAY BY INTRANASA L ROUTE FOR 1 DAY. 07/07 completed Not Available Not Available Not Available amoxicilli n 875 mg-potassi um clavulanat e 125 mg tablet TAKE 1 TABLET BY MOUTH EVERY 12 HOURS FOR 7 DAYS active Not Available Not Available No t Available Bactrim DS 800 mg-160 mg tablet 1 tab po post coital prn 06/11 completed Not Available Not Available Not Available prednisolo ne sodium phosphate 5 mg base/5 mL (6.7 mg/5 mL) oral soln GARGLE AND SWALLOW ONE TEASPOONF UL (5ML) BY MOUTH 2 TIMES DAILY DIRECTED FOR 7 DAYS. 07/07 completed Not Available Not Available Not Available nitrofuran toin monohydrat e/macrocry stals 100 mg capsule TAKE 1 CAPSULE BY MOUTH EVERY 12 HOURS FOR 7 DAYS active Not Available Not Available No t Available chlorhexid ine gluconate 0.12 % mouthwash RINSE WITH 1 CAPFUL BY MOUTH TWICE DAILY 05/06 completed Not Available Not Available Not Available multivitam in active OTC daily Not Available Not Available Not Available Mucus Relief ER 600 mg tablet, extended release Take 1 tablet every 12 hours by oral route for 14 days. 07/07 completed Not Available Not Available Not Available BinaxNOW COVID-19 Ag Self Test kit FOLLOW INSTRUCTI ONS INCLUDED WITH THE PACKAGE. 04/26 completed Not Available Not Available Not Available Paxlovid 300 mg (150 mg x 2)-100 mg tablets in a dose pack TAKE 3 TABLETS BY MOUTH TWICE DAILY DIRECTED ON BOX FOR 5 DAYS active Not Available Not Available No t Available Vitals Date Recorded Body height Body mass index (BMI) Body weight Heart rate Oxygen saturation Oxygen saturation in Arterial blood by Pulse oximetry Systolic blood pressure Diastolic blood pressure Provider Name and Address Organization Details Last Updated DateTime 3 168.91 cm 22.6 kg/m2 38990.1 2 g 67 /min 98 % 98 % 100 mm[Hg] 60 mm[Hg] [facility] 3 10:51:13 Date Recorded Body height Body mass index (BMI) Body weight Heart rate Oxygen saturation Oxygen saturation in Arterial blood by Pulse oximetry Systolic blood pressure Diastolic blood pressure Provider Name and Address Organization Details Last Updated DateTime 3 168.91 cm 22.3 kg/m2 98811.9 3 g 74 /min 99 % 99 % 120 mm[Hg] 68 mm[Hg] Iman Andrez [facility] 3 09:34:47 Date Recorded Body height Body mass index (BMI) Body weight Heart rate Oxygen saturation Oxygen saturation in Arterial blood by Pulse oximetry Systolic blood pressure Diastolic blood pressure Provider Name and Address Organization Details Last Updated DateTime 4 168.91 cm 23.2 kg/m2 66383.4 9 g 81 /min 99 % 99 % 100 mm[Hg] 64 mm[Hg] Iman Maguire [facility] 4 11:01:43 Social History Question Answer Notes LastModified by Organizat ion Details LastModified Time Tobacco Smoking Status Never Smoker Sandy Jazzmine paiz [facility] 09/27/2017 15:08:14 What Was The Date Of Your Most Recent Tobacco Screening? 01/07/2023 Information not available 03/14/2023 Do You Or Have You Ever Used Any Other Forms Of Tobacco Or Nicotine? No [email or web address] Information not available 03/14/2023 Sex: Unknown Functional Status None recorded. Mental Status None recorded. Family History Relationship Description Onset Age of this Age Resolved Age Notes LastModified by Organization Details LastModified Time Father Type 1 diabetes mellitus 48 dialys is sreedhar Not available 09/27/2017 15:12:05 Mother Malignant neoplasm of skin fibroi ds sreedhar Not available 09/27/2017 15:12:31 Medical History Condition Response Coronary Artery Disease N Gout N Kidney Stones N Blood Diseases N Hyperthyroidism N Blood Transfusion N COPD N Depression Y Anxiety Disorder N Muscle, Joint, or Bone Problems N Obesity N Vision or Eye Problems Y Arthritis Infertility Y Mental Disorder N Cancer N Stroke N Varicosities N Fibromyalgia N Headaches N Kidney Disease N Heart Problems N Skin Problems Y Eating Disorder Y Constipation N Asthma N Hepatitis N Pulmonary Embolism N Chronic Ear Infections N Chicken Pox Y Autism Spectrum Disorder (ASD) N Thrombophilias N Breast Cancer N Hypothyroidism Y Lung Disease N Defects or Inherited Disease N Difficulty Swallowing Y Bladder or Kidney Problems N Liver Disease N Allergies/Hayfever N Thyroid Problems Y GI Problems N Anemia Mental Illness N Diabetes N Seizures/Epilepsy N Congestive Heart Failure (CHF) N Eczema N Diverticulitis N Abuse/Domestic Violence N Reflux/GERD N Heart Disease N Hypertension N Gynecological History Statement/Question Response Abnormal Pap Y Flow Heavy Date of LMP 09/22/2017 On BCP's at Conception? N STIs/STDs N HPV Vaccine N Duration of Flow (days) 5 Age at Menarche 14 Current Control Method None Age at First Child 43 Sexually Active? Y Menses Monthly Y Date of Last Pap Smear 02/07/2015 Sexual Problems? Y Obstetrics History GPAL:G 1 P 1 0 0 1 Type Value Full Term 1 Living 1 Total 1 Immunizations Vaccine Type Date Status Note Provider Nam e and Address Organization Details Recorded Time COVID-19, mRNA, LNP-S, PF, 100 mcg/0.5mL dose or 50 mcg/0.25mL dose 1 completed Amairani paiz [facility] 08/19/2020 14:27:21 COVID-19, mRNA, LNP-S, PF, 100 mcg/0.5mL dose or 50 mcg/0.25mL dose 1 completed Amairani paiz [facility] 08/19/2020 14:27:27 COVID-19, mRNA, LNP-S, PF, 100 mcg/0.5mL dose or 50 mcg/0.25mL dose 1 completed Amairani paiz [facility] 08/19/2020 14:27:35 influenza, unspecified formulation 2 completed Arminda paiz [facility] 12/30/2021 09:52:53 COVID-19, mRNA, LNP-S, bivalent, PF, 10 mcg/0.2 mL 1 completed Arminda paiz [facility] 12/30/2021 09:53:24 COVID-19, mRNA, LNP-S, bivalent, PF, 10 mcg/0.2 mL 2 completed Arminda paiz [facility] 12/30/2021 09:53:29 Influenza, split virus, quadrivalent, preservative 8 [facility] 15:32:02 Past Encounters Encounter ID Performer Location Encounter Start Date Encounter Closed Date Diagnosis/Indication Diagnosis SNOMED-CT Code Diagnosis ICD10 Code [id number] Amy Manuel NP, [address],[facility] [place] [address] 09/27/2017 15:01:57 09/27/2017 16:16:04 Adult health examination 542258533 Z00.00 Hypothyroidism 30493829 E03.9 History of malignant neoplasm of skin 485138779 Z85.828 Recurrent cystitis 03894 3008 N30.90 Screening procedure 2012 5006 Z13.9 [id number] SHABNAM CENTENO [address] [place] [address] 06/12/2019 15:12:15 06/12/2019 15:45:05 Low back pain 935424658 M54.5 [id number] SHABNAM CENTENO [address] [place] [address] 05/06/2020 09:52:37 05/06/2020 16:55:54 Active or passive immunization 110594254 Z23 Adult [facility] th examination 845543664 Z00.00 Anxiety 90338056 F41.9 Screening for cardiovascular system disease 021398062 Z13.6 [id number] SHABNAM CENTENO [address] [place] [address] 06/03/2020 09:43:28 06/03/2020 11:54:55 Impacted cerumen of bilateral ears 0198699871 423557 H61.23 Hypothyroidism 54375387 E03.9 [id number] SHABNAM CENTENO [address] [place] [address] 08/26/2020 10:34:13 08/26/2020 11:59:11 Hypothyroidism 16871059 E03.9 Impacted cerumen 8635992 6 H61.23 [id number] SHABNAM CENTENO [address] [place] [address] 11/26/2020 10:28:51 11/26/2020 15:39:12 Posterior rhinorrhea 76056413 R09.82 Impacted c erumen of bilateral ears 9509855353 267560 H61.23 [id number] SHABNAM CENTENO [address],[facility] [place] [address] 03/16/2021 08:58:06 03/16/2021 12:14:43 Impacted campbelln 87046717 H61.23 [id number] SHABNAM CENTENO [address],[facility] [place] [address] 07/07/2021 10:58:01 07/07/2021 11:55:58 Dysuria 77425571 R30.0 [id number] SHABNAM CENTENO [address],[facility] [place] [address] 12/30/2021 10:27:32 12/30/2021 11:53:35 Active or passive immunization 245487689 Z23 Adult heal th examination 864297320 Z00.00 Bilateral carpal tunnel syndrome 1202208234 3186635 G56.03 Gastroesop hageal reflux disease 218350920 K21.9 [id number] SHABNAM CENTENO [address],[facility] [place] [address] 04/26/2022 10:37:52 04/26/2022 12:07:54 Pain of left knee joint 8362186847 98483 M25.562 Pain in left foot 215928 2688 77851 M79.672 [id number] SHABNAM CENTENO [address],[facility] [place] [address] 01/07/2023 09:30:14 01/10/2023 08:17:25 Perimenopausal disorder 546183289 N95.8 Bilateral carpal tunnel syndrome 7850104759 2678705 G56.03 Tear of me niscus of knee 578896175 S83.207A [id number] SHABNAM CENTENO [address] [place] [place] [address] 02/04/2023 11:32:31 02/04/2023 16:12:01 Pain of left shoulder joint 2364194707 3079479 M25.512 [id number] SHABNAM CENTENO [address] [place] [address] 03/14/2023 10:55:57 03/14/2023 15:34:54 Rupture of rotator cuff of left shoulder 6997713093 5422514 M75.112 [id number] SHABNAM CENTENO [facility] [address] [facility] [place] [address] 04/26/2023 11:38:49 04/26/2023 15:27:14 Acute sinusitis 88820478 J01.01 Health Concerns Section Related Observation LastModified by Organization Detai ls LastModified Time None Recorded Concern Status LastModified by Organization Details LastModified Time None Recorded Advance Directives Directive None Recorded Payers Encounter Date Sequence Insurance Name Policy Number Policy Noel Covered Member ID Noel Member ID Guarantor Name 04/26/2022 1 [employer] [id number] Elena Deras [id number] Elena Deras 01/07/2023 1 [employer] [id number] Elena Deras [id number] Elena Deras 02/04/2023 1 [employer] [id number] Elena Deras [id number] Elena Deras 03/14/2023 1 UMR [id number] Elena Deras [id number] Elena Deras 04/26/2023 1 UMR [id number] Elena Deras [id number] Elena Deras Notes Date Note Type Note Provider Name and Address Organization Details Recorded Time 04/26/2022 text/html f/u left knee pa in the patient reports that she is having left knee painfrom IT band to left knee to left calf into the heel of her footthe patient reports that it is aggravated by kneelingconstant aching in the lateral side of her left leg the patient reports that she was seen prior for IT band friction syndromesaw NEOSno recent imaging on those areas SHABNAM CENTENO [address] [place] [address] [place], [address], [facility] 04/26/2022 11:25:01 01/07/2023 text/html medication check the patient is doing well the patient levels look goodwill continue on the red yeast riceHDL is really really good the patient is having night sweats, hair thinning, skin changes, mood changesagreed to check levels of her hormones as well will continue to monitor her cholesterol BP is excellent getting wrist injections and an injection in her left kneedoing okay with them SHABNAM CENTENO [address] [facility], [place], [address], [facility] 01/07/2023 10:05:47 02/04/2023 text/html c/o left shoulde r pain telemed phone callpt consents to phone call the patient is having left shoulder painonly thing that is repetitive is her dog sharp pain with laterally side to sideflexion and extension bother herso does external rotationpain with sleeping at night on right side due to gravity throbbing ache in the shoulderbothers her more toward the end of the day the patient has been using celebrex for her knee will order and give higher doseprobable tendinitis will fu with pt if no improvement with rest and NSA[place], [address], [facility] 02/04/2023 14:39:12 03/14/2023 text/html c/o left shoulde r The patient reports L shoulder pain, has had issues with it, worsened after shoveling this winterThe pain started about two to three weeks agoThe pain is characterized by pain in the anterior shoulder, down the left arm along the bicep tendonpain provoked by movement like flexion or extensionOn a scale of 1 to 10 the patient reports a 7/10 at worse and 4/10 at bestThe patient is R hand dominant Endorses weakness, radiation, reduced ROM, pain, notable strength lose in the L arm compared toThe pain is worsened by flexion and extensionThe pain is alleviated by rest, NSAIDs occasionally The patient reports no trauma or injuryThe patient reports repetitive activities/shoveling ROM compared to unaffected shoulder is weaker with crepitus SHABNAM CENTENO 6 [facility], [place], [address], [facility] 03/14/2023 11:21:05 04/26/2023 text/html c/o sinus infect ion The patient is participating in this appointment via telemedicine communication with a phone call/video calling service (Doxy)The patient consents to use of these platforms in place of an in-person appointment due to either sick symptoms the patient is presenting with or current office closure due to COVID exposure in order to keep our office staff and patients safe The patient presents to the office today with concerns of sick symptoms including sinus pressure, pain, congestion, ear blockage, producing green/yellow mucus no fever, no chillsno sore throat The symptoms started originally n/aThe patient reports exposure to her son, sick and recently in peds officeThe patient symptoms mainly involves the Pertinent comorbidities include n/a The patient symptoms are alleviated by rest, mucinex for a few hoursThe patient symptoms are exacerbated by blowing her nose, bending over The patient has tested for COVID-19 and the results was negative SHABNAM CENTENO [address] [place] [address],[facility], [place], [address], [facility] 04/26/2023 13:58:04 OBGyn Episode No OBEpisode recorded.
--- OUTSIDE RECORDS SUMMARY | 2024-01-18 23:50 | XMS_ITS | Patient Health Record ---
Author Organization [facility] Address [address] [place] [address] Care Team Providers Care Associate Oracle Retail Name Role Phone Emeka Morse Primary Care Provider Ori Villaseñor [phone] ALLERGIES Allergen (clinical drug ingredient) Drug/Non Drug Allergy documented on EMR Reaction Allergy Type Onset Date Status sulfamethoxazole / trimethoprim Bactrim Unknown Drug Allergy Active REASON FOR REFERRAL No Information MEDICATIONS Medication SIG (Take, Route, Frequency, Duration) Notes Start Date End Date Status Multivitamin - as directed Orally Active Red Yeast Rice 600 MG as directed Orally Active Omeprazole 20 MG 1 capsule 30 minutes before morning meal Orally Once a day for 30 day(s) 02/12/2022 Active Levothyroxine Sodium 50 MCG 1 tablet in the morning on an empty stomach Orally Once a day for 30 day(s) 02/12/2022 Active IMMUNIZATIONS Vaccine Route Administration Date Status Comme nts Influenza Unknown 12/30/2021 Administered SOCIAL HISTORY Tobacco Use: Social History Observation Description Date Details (start date - stop date) Never Smoker NA - NA Sex Assigned At : Social History Observation Description Sex Assigned At Unknown Tobacco Use/Smoking Question Answer Notes Patient is a nonsmoker Alcohol Screen Question Answer Notes Did you have a drink contain ing alcohol in the past year? Yes How often did you have a dri nk containing alcohol in the past year? 2 to 3 times a week (3 points) How many drinks did you have on a typical day when you were drinking in the past year? 1 or 2 drinks (0 point) How often did you have 6 or more drinks on one occasion in the past year? 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 629054620 Problem Screen for colon cancer (Z12.11) Active confirmed 661332836 Problem Gastric polyp (K31.7) Active confirmed Gastric polyp (67734044) Problem Globus sensation (F45.8) Active confirmed Globus sensation (008244427) PLAN OF TREATMENT Pending Test Test Name Order Date Pathology 04/02/2022 Future Test Test Name Order Date UPPER GI ENDOSCOPY 02/12/2022 COLONOSCOPY 02/12/2022 Insurance Providers Payer Name Payer Address Payer Phone Subscriber Number Group Number Insured Name Patient Relationship to Insured Coverage Start Date Coverage End Date [place] [address] [address] [place] [address] [id number] WILLIE THOMPSON Self - patient is the insured MEDICAL (GENERAL) HISTORY Medical History History ICD Code Hypothyroidism Denies [place],DM,CVA,Lung disease,renal dise ase Globus Surgical History Surgery Date(Month/Year) Eye surgery with Lasik 2006
== END 2024-01-18 09:31 | disposition home or self-care (01) ==
LOC: HO.LAB 09:30
PROVIDERS: PCP Internal Medicine; Visit Provider Physician Assistant
DX: Z00.00 Encounter for general adult medical examination without abnormal findings (principal)
CPT/HCPCS: 36415; 80053; 80061; 82306; 84439; 84443; 85025

== ENCOUNTER 2024-10-29 09:39 | Outpatient (REF) | payer OTHER, SELFPAY ==
--- OUTSIDE RECORDS SUMMARY | 2024-10-29 11:26 | XMS_ITS | Clinical Summary ---
Author Organization [facility] Address [address] [place] [address] Care Team Providers Care Devulcanizer Loader Name Role Phone Unavailable Primary Care Provider Unavailabl e Social History Tobacco Use Types Packs/Day Years Used Date Smoking Tobacco: Never Assessed Comments Unknown Sex and Gender Information Value Date Recorded Sex Assigned at Not on file Legal Sex Female 7:12 PM EST Gender Identity Not on file Sexual Orientation Not on file Plan of Treatment Health Maintenance Due Date Last Done Comments Breast Cancer Screening 1972 DTaP,Tdap,and Td Vaccines (1 - Tdap) 08/02/1991 Hepatitis B Vaccines (1 of 3 - 19+ 3-dose series) 08/02/1991 Cervical Cancer Screening: P ap Smear 1993 Pneumococcal Vaccine: 50+ Ye ars (1 of 1 - PCV) 2022 Zoster Vaccines (1 of 2) 2022 Depression Screening 02/08/2024 COVID-19 Vaccine (1 - 2023-2 5 season) 2024 Influenza Vaccine (#1) 2024 HIB Vaccines Aged Out No longer eligi ble based on patient's age to complete this topic HPV Vaccines Aged Out No longer eligi ble based on patient's age to complete this topic Hepatitis A Vaccines Aged Out No long er eligible based on patient's age to complete this topic IPV Vaccines Aged Out No longer eligi ble based on patient's age to complete this topic MMR Vaccines Aged Out No longer eligi ble based on patient's age to complete this topic Meningococcal ACWY Vaccine Aged Out N o longer eligible based on patient's age to complete this topic Meningococcal B Vaccine Aged Out No l onger eligible based on patient's age to complete this topic RSV Immunization Patients Un estrada 20 months Aged Out No longer eligible b ased on patient's age to complete this topic Varicella Vaccines Aged Out No longer eligible based on patient's age to complete this topic
--- OUTSIDE RECORDS SUMMARY | 2024-10-29 11:26 | XMS_ITS | Clinical Summary ---
Author Organization [facility] Address [address] [place] [address] Care Team Providers Care Wire Rope Fabrication Supervisor Name Role Phone Unavailable Primary Care Provider Unavailabl e Social History Tobacco Use Types Packs/Day Years Used Date Smoking Tobacco: Never Assessed Sex and Gender Information Value Date Recorded Sex Assigned at Not on file Gender Identity Not on file Sexual Orientation Not on file Plan of Treatment Not on file
--- OUTSIDE RECORDS SUMMARY | 2024-10-29 11:27 | XMS_ITS | Patient Health Record ---
Author Organization [facility] Address [address] [place] [address] Care Team Providers Care Human Factors Scientist Name Role Phone Emeka Morse Primary Care Provider Ori Villaseñor [phone] Allergies Allergen (clinical drug ingredient) Drug/Non Drug Allergy documented on EMR Reaction Allergy Type Onset Date Status sulfamethoxazole / trimethoprim Bactrim Unknown Drug Allergy Active Reason For Referral No Information Medications Medication SIG (Take, Route, Frequency, Duration) Notes [...] a day for 30 day(s) 02/12/2022 Active Immunizations Vaccine Route Administration Date Status Comme nts Influenza Unknown 12/30/2021 Administered Social History Tobacco Use: Social History Observation Description Date Details (start date - stop date) Never Smoker NA - NA Tobacco Use/Smoking Question Answer Notes Patient is [...] Never (0 point) Points 3 Interpretation Positive Section Notes: No sig alcohol, nonsmoker Problems Problem Type SNOMED Code ICD Code Onset Dates Problem Status W/U Status Risk Notes Problem [id number] Screen for colon cancer (Z12.11) Active confirmed Problem Gastric polyp (93394713) Gastric polyp (K31.7) Active confirmed Problem Globus sensation (486720538) Globus sensation (F45.8) Active confirmed Problem 642184800 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 Plan Of Treatment Pending Test Test Name Order Date Pathology 04/02/2022 Future Test Test Name Order Date UPPER GI ENDOSCOPY 02/12/2022 COLONOSCOPY 02/12/2022 Insurance Providers Payer Name Payer Address Payer Phone Subscriber Number Group Number Insured Name Patient Relationship to Insured Coverage Start Date Coverage End Date [employer] [address] [address] [place] [address] [phone] [id number] WILLIE THOMPSON Self - patient is the insured Medical (General) History Medical History History ICD Code Hypothyroidism Denies [place],DM,CVA,Lung disease,renal dise ase Globus Surgical History Surgery Date(Month/Year) Eye surgery with Lasik 2006
[2024-10-29 11:32] LABS: Free T4 (Free Thyroxine) 1.20 ng/dL (0.71-1.85); Thyroid Stimulating Hormone 0.69 uIU/mL (0.32-4.0)
== END 2024-10-29 09:40 | disposition home or self-care (01) ==
LOC: HO.LAB 09:39
PROVIDERS: Visit Provider Physician Assistant
DX: E03.8 Other specified hypothyroidism (principal)
CPT/HCPCS: 36415; 84439; 84443

== ENCOUNTER 2024-12-18 10:59 | Outpatient (REF) | payer OTHER, SELFPAY ==
--- NOTE | ~2024-12-18 | US_ITS ---
EXAMINATION: US THYROID CLINICAL INFORMATION: Hypothyroidism COMPARISON: None available. TECHNIQUE: Linear transducer grayscale and color Doppler examination with attention to the region of the thyroid. FINDINGS: SIZE: Measurements of the thyroid lobes and nodules are given in sagittal, anteroposterior and transverse dimensions respectively. Right Thyroid Lobe: 4.3 x 0.6 x 0.9 cm, volume 1.2 mL. Parenchyma: The gland echotexture is normal. Thyroid vascularity is normal. Left Thyroid Lobe: 3.8 x 1.3 x 1.3 cm, volume 3.5 mL. Parenchyma: The gland echotexture is normal. Thyroid vascularity is normal. Isthmus: 0.2 cm in maximum AP dimension. Estimated total number of nodules greater than or equal to 1 cm: 1. Car Stereo Installer nodules are described as follows: 1. Location: Midportion left lobe. Size: 1.8 x 1.1 x 0.9 cm, volume 0.91 mL. Nodule characteristics: Composition: Mixed cystic and solid (1). Echogenicity: Hypoechoic (2). Shape: Taller than wide (3). Margins: Smooth (0). Echogenic Foci: Macrocalcifications (1). ACR TI-RADS total points: 4 ACR TI-RADS category: 4 2. Location: Lower pole, left lobe. Size: 0.7 x 0.4 x 0.5 cm, volume 0.07 mL. Nodule characteristics: Composition: Solid/almost completely solid (2). Echogenicity: Isoechoic (1). Shape: Not taller than wide (0). Margins: Smooth (0). Echogenic Foci: None (0). ACR TI-RADS total points: 3 ACR TI-RADS category: 3 NODES: No gross lymphadenopathy. US/US thyroid IMPRESSION: ACR TI-RADS Category 4 and 3. ACR TI-RADS RECOMMENDATION REFERENCE: Ultrasound-guided fine-needle aspiration, followup ultrasound, no further follow up. * TR1 (0 point) and TR2 (2 points): No FNA or follow up. * TR3 (3 points): FNA if more than or equal to 2.5 cm in maximum dimension, followup ultrasound in 1, 3 and 5 years if 1.5 to 2.4 cm in maximum dimension. * TR4 (4-6 points): FNA if more than or equal to 1.5 cm in maximum dimension, followup ultrasound in 1, 2, 3 and 5 years if 1 to 1.4 cm in maximum dimension. * TR5 (more than or equal to 7 points): FNA if more than or equal to 1 cm in maximum dimension, followup ultrasound every year for 5 years if 0.5 to 0.9 cm in maximum dimension. * TR3, TR4 or TR5 nodules that are below the size threshold for followup receive no follow up. Electronically signed by: Jr Moctezuma MD 12/18/2024 11:37 AM BLANCA GONZALEZ
--- OUTSIDE RECORDS SUMMARY | 2024-12-18 13:07 | XMS_ITS | Clinical Summary ---
Author Organization [facility] it[facility] Address [address] [place] [address] Care Team Providers Care Vehicle Maintenance Supervisor Name Role Phone Unavailable Primary Care [...] Depression Screening 02/08/2024 COVID-19 Vaccine (1 - 2024-2 6 season) 2024 Influenza Vaccine (#1) 2024 RSV Immunization Adult Patie nts (1 - 1-dose 75+ series) 08/02/2047 HIB Vaccines Aged Out No longer eligi [...]
--- OUTSIDE RECORDS SUMMARY | 2024-12-18 13:08 | XMS_ITS | Patient Health Record ---
Author Organization [facility] Address [address] [place] [address] Care Team Providers Care Sewing Machine Operator Semiautomatic Name Role Phone Emeka Morse Primary Care Provider Ori Villaseñor [phone] Allergies Allergen (clinical drug ingredient) Drug/Non Drug [...] minutes before morning meal Orally Once a day; Duration: 30 day(s) 02/12/2022 Active Levothyroxine Sodium 50 MCG 1 tablet in the morning on an empty stomach Orally Once a day; Duration: 30 day(s) 02/12/2022 Active Immunizations Vaccine Route [...] Problem Status W/U Status Risk Notes Problem Screening for malignant neoplasm of colon (738703903) Screen for colon cancer (Z12.11) Active confirmed Problem Gastric polyp (44613376) Gastric polyp (K31.7) Active confirmed Problem Globus sensation (298504032) Globus sensation (F45.8) Active confirmed Problem Globus pharyngeus (650324504) 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 Plan Of Treatment Pending Test Test Name Order Date Pathology 04/02/2022 Future Test Test Name Order Date UPPER GI ENDOSCOPY 02/12/2022 COLONOSCOPY 02/12/2022 Insurance Providers Payer Name Payer Address Payer Phone Subscriber Number Group Number Insured Name Patient Relationship to Insured Coverage Start Date Coverage End Date [facility] [address] [address] [place] [address] [id number] WILLIE THOMPSON Self - patient is the insured Medical (General) History Medical History History ICD Code Hypothyroidism Denies [place],DM,CVA,Lung disease,renal dise ase Globus Surgical History Surgery Date(Month/Year) Eye surgery with Lasik 2006
== END 2024-12-18 11:00 | disposition home or self-care (01) ==
LOC: HO.US 10:59
PROVIDERS: PCP Internal Medicine; Visit Provider Physician Assistant
DX: E03.8 Other specified hypothyroidism (principal)
CPT/HCPCS: 76536

== ENCOUNTER → 2024-12-18 11:01 | Outpatient (BNV) | payer OTHER, SELFPAY | PROVIDERS: PCP Internal Medicine; Visit Provider Radiology Diagnostic Radiology | DX: E03.9 Hypothyroidism, unspecified (principal) | CPT/HCPCS: 76536 ==

== ENCOUNTER 2025-01-23 09:26 | Outpatient (REF) | payer OTHER, SELFPAY ==
[2025-01-23 10:02] LABS: MANUAL DIFF FLAG NO
--- OUTSIDE RECORDS SUMMARY | 2025-01-23 10:48 | XMS_ITS | Clinical Summary ---
Author Organization [facility] Prior to 07/07/[address] [place] [address] Care Team Providers Care Tray Checker Name Role Phone Unavailable Primary Care Provider Unavailabl e Social History Tobacco Use Types Packs/Day Years Used Date Smoking Tobacco: Never Assessed Sex and Gender Information Value Date Recorded Sex Assigned at Not on file Gender Identity Not on file Sexual Orientation Not on file Plan of Treatment Not on file
--- OUTSIDE RECORDS SUMMARY | 2025-01-23 10:48 | XMS_ITS | Clinical Summary ---
Author Organization [facility] it[facility] Address [address] [place] [address] Care Team Providers Care Electric Blanket Wirer Name Role Phone Unavailable Primary Care Provider [...]
--- OUTSIDE RECORDS SUMMARY | 2025-01-23 10:49 | XMS_ITS | Patient Health Record ---
Author Organization [facility] Address [address] [place] [address] Care Team Providers Care Processing Archivist Name Role Phone Emeka Morse Primary Care Provider Ori Villaseñor [phone] Allergies Allergen (clinical drug ingredient) Drug/Non Drug Allergy documented on EMR Reaction Allergy Type Onset Date Status sulfamethoxazole / trimethoprim Bactrim Unknown Drug Allergy Active Reason For Referral No Information Medications Medication SIG (Take, Route, Frequency, Duration) Notes Start Date End Date Status Multivitamin - Tablet Chewable as directed Orally Active Red Yeast Rice 600 MG Capsule as directed Orally Active Omeprazole 20 MG Capsule Delayed Release 1 capsule 30 minutes before morning meal Orally Once a day; Duration: 30 day(s) 02/12/2022 Active Levothyroxine Sodium 50 MCG Tablet 1 tablet in the morning on an empty stomach Orally Once a day; Duration: 30 day(s) 02/12/2022 Active Immunizations Vaccine Route Administration Date Status Comme nts Influenza Unknown 12/30/2021 Administered Social History Tobacco Use: Social History Observation Description Date Details (start date - stop date) Never Smoker NA - NA Social History Drugs/Alcohol: Social Info Question Answer Notes Alcohol Screen Did you have a drink containing alcohol in the past year? Yes How often did you have a drink containing alcohol in the past year? 2 to 3 times a week (3 points) How many drinks did you have on a typical day when you were drinking in the past year? 1 or 2 drinks (0 point) How often did you have 6 or more drinks on one occasion in the past year? 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 Children: yes 1 child with aut ism Section Notes: No sig alcohol, nonsmoker Problems Problem Type SNOMED Code ICD Code Onset Dates Problem Status W/U Status Risk Notes Problem Screening for malignant neoplasm of colon (935057933) Screen for colon cancer (Z12.11) Active confirmed Problem Gastric polyp (80571483) Gastric polyp (K31.7) Active confirmed Problem Globus sensation (716307317) Globus sensation (F45.8) Active confirmed Problem Globus pharyngeus (635088700) 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 Plan Of Treatment Pending Test Test Name Order Date Pathology 04/02/2022 Future Test Test Name Order Date UPPER GI ENDOSCOPY 02/12/2022 COLONOSCOPY 02/12/2022 Insurance Providers Payer Name Payer Address Payer Phone Subscriber Number Group Number Insured Name Patient Relationship to Insured Coverage Start Date Coverage End Date [facility] [address] [address] [place] [address] [id number] WILLIE THOMPSON Self - patient is the insured Medical (General) History Medical History History ICD Code Hypothyroidism Denies [place],DM,CVA,Lung disease,renal dise ase Globus Surgical History Surgery Date(Month/Year) Eye surgery with Lasik 2006
[2025-01-23 11:00] LABS: Hematocrit 38.5 % (37.0-47.0); Hemoglobin 12.4 g/dl (12.0-16.0); Imm Gran Abs Auto 0.01 X10*3/uL (0.00-0.03); Imm Gran Pct Auto 0.2 % (0.0-0.4); Lymphocytes Absolute Auto 1.1 X10*3/uL (1.2-4.9); Mean Corpuscular HGB Conc 32.2 g/dl (31.0-35.0); Mean Corpuscular Hemoglobin 28.9 pg (27.0-33.0); Mean Corpuscular Volume 89.7 fL (80.0-98.0); NRBC Abs Auto 0.000 X10*3/uL (0.0-0.012); NRBC Pct Auto 0.0 /100WBC (0.0-0.2); Platelet Count 217 X10*3/uL (160-400); Red Blood Count 4.29 X10*6/uL (4.20-5.50); White Blood Count 4.1 X10*3/uL (4.8-10.8)
[2025-01-23 11:51] LABS: Alanine Aminotransferase 15 U/L (0-31); Albumin Level 4.2 g/dL (3.5-5.0); Alkaline Phosphatase 34 U/L (39-117); Anion Gap 10 (12-20); Aspartate Amino Transferase 21 U/L (5-31); Blood Urea Nitrogen 14 mg/dL (9-16); Calcium 8.7 mg/dL (8.4-10.2); Carbon Dioxide 28 mmol/L (22-29); Chloride 106 mmol/L (96-108); Cholesterol 179 mg/dL (<200); Estimated Glomerular Filt Rate > 60; HDL Cholesterol 66 mg/dL (>40); Potassium 4.3 mmol/L (3.3-5.1); Sodium 140 mmol/L (135-145); Total Protein 6.6 g/dL (6.5-8.0); Triglycerides 52 mg/dL (<150)
[2025-01-23 12:10] LABS: Free T4 (Free Thyroxine) 1.16 ng/dL (0.71-1.85); Thyroid Stimulating Hormone 1.18 uIU/mL (0.32-4.0)
== END 2025-01-23 09:27 | disposition home or self-care (01) ==
LOC: HO.LAB 09:26
PROVIDERS: PCP Internal Medicine; Visit Provider Physician Assistant
DX: Z00.00 Encounter for general adult medical examination without abnormal findings (principal); E04.1 Nontoxic single thyroid nodule; Z13.1 Encounter for screening for diabetes mellitus; Z13.6 Encounter for screening for cardiovascular disorders
CPT/HCPCS: 36415; 80053; 80061; 83036; 84439; 84443; 84445; 84481; 85025; 86376